=== PATIENT | male | born 1990 | race Caucasian/White ===

== ENCOUNTER 2024-05-02 08:20 | Emergency (ER) | payer SELFPAY ==
[2024-05-02 09:07] LABS: INR-International Normal Ratio 1.1; Prothrombin Time 13.8 sec (12.0-14.7)
[2024-05-02 09:08] LABS: PTT 29.2 sec (22.9-36.1)
[2024-05-02] MEDS ORDERED: Morphine 4 MG/ML VIAL ONE (09:10)
[2024-05-02] MEDS ORDERED: Ondansetron PF 4 MG/2 ML Vial ONE (09:11)
[2024-05-02] MEDS ORDERED: cefTRIAXone (ROCEPHIN) 1 GM VIAL ONE (09:11)
[2024-05-02 09:15] LABS: Anion Gap 14 mmol/L (10-20); BUN (Urea Nitrogen) 14 mg/dL (8.9-20.6); Calc. Creatinine Clearance 0 mL/min (70-130); Calcium 8.8 mg/dL (7.8-10.44); Carbon Dioxide 20 mmol/L (22-29); Chloride 106 mmol/L (98-107); Estimated GFR 117; Glucose 105 mg/dL (70-105); Potassium 3.8 mmol/L (3.5-5.1); Sodium 136 mmol/L (136-145)
[2024-05-02 09:37] LABS: Hematocrit 41.2 % (42.0-52.0); Hemoglobin 13.1 g/dL (14.0-18.0); Manual Diff?? YES; Mean Corpuscular HGB CONC 31.9 g/dL (32.0-36.0); Mean Corpuscular Hemoglobin 29.2 pg (27.0-31.0); Mean Corpuscular Volume 91.7 fl (78.0-98.0); Mean Platelet Volume 9.8 fL (7.4-10.4); Platelet Count 188 10x3/uL (130-400); RBC Distribution Width 11.7 % (11.5-14.5); Red Blood Cell (RBC) Count 4.49 mill/uL (4.70-6.10); White Blood Cell (WBC) Count 15.4 10x3/uL (4.8-10.8)
[2024-05-02 09:38] LABS: Band 1 % (5-11); Eosinophils 1 % (0-10); Lymphocytes 3 % (21-51); MDiff Complete? YES; Monocytes 2 % (0-10); Neutrophil 91 % (42-75); Platelet Adequacy Comment Appears Adequate; Reactive Lymphocytes 2 % (0-10)
[2024-05-02] MEDS ORDERED: Vancomycin 1 GM VIAL ONE (09:52)
[2024-05-02] MEDS ORDERED: HYDROcodone/Acetaminophen 10/325 mg Tablet ONE (10:31)
[2024-05-02] MEDS ORDERED: Dexamethasone 4 mg/ml Vial ONE (10:31)
== END 2024-05-02 11:10 | disposition home or self-care (01) ==
LOC: MADERS 08:20
DX: L03.113 Cellulitis of right upper limb (principal); L25.9 Unspecified contact dermatitis, unspecified cause; F17.210 Nicotine dependence, cigarettes, uncomplicated
CPT/HCPCS: 80048; 83605; 85025; 85610; 85730; 86140; 87040; 87070; 87077; 87186; 87205; 93005; 96365; 96375; J0696; J1100; J2270; J2405; J3370

== ENCOUNTER 2024-10-30 22:11 | Emergency (ER) | payer SELFPAY ==
[2024-10-30] MEDS ORDERED: Fluorescein Opthalmic Strip ONE (22:22)
[2024-10-30] MEDS ORDERED: Tetracaine 0.5% PF 4 ML BOT ONE (22:23)
[2024-10-30] MEDS ORDERED: Erythromycin Base 0.5% Ophth Oint 3.5 gm Tube ONE (23:40)
[2024-10-30] MEDS ORDERED: HYDROcodone/Acetaminophen 5/325 mg Tablet ONE (23:44)
== END 2024-10-31 00:06 | disposition home or self-care (01) ==
LOC: MADERS 22:11
DX: S05.01XA Injury of conjunctiva and corneal abrasion without foreign body, right eye, initial encounter (principal); F17.210 Nicotine dependence, cigarettes, uncomplicated; W22.8XXA Striking against or struck by other objects, initial encounter; Y99.0 Civilian activity done for income or pay
CPT/HCPCS: 99283